=== PATIENT | female | born 1970 | race Caucasian/White ===

== ENCOUNTER 2023-11-27 19:57 | Inpatient (IN) | payer MEDICAID, OTHER ==
[2023-11-27 01:16] VITALS: BP 137/64; TEMP 97.5; O2SAT 99
[~2023-11-27 19:57] MED LIST: LITH45TASA PO
[2023-11-27 21:39] LABS: ETHYL ALCOHOL (ETHANOL) 0.006 % (0.000-0.010)
[2023-11-27 21:40] LABS: ALBUMIN 3.7 G/DL (3.2-5.2); ALKALINE PHOSPHATASE 70 U/L (46-116); ALT/SGPT 23 U/L (7.0-40); AST/SGOT 17 U/L (<34); BILIRUBIN,DIRECT < 0.1 MG/DL (<0.4); BILIRUBIN,TOTAL 0.3 MG/DL (0.3-1.2); BLOOD UREA NITROGEN 13 MG/DL (9-23); CALCIUM LEVEL 11.2 MG/DL (8.5-10.1); CARBON DIOXIDE LEVEL 24 MMOL/L (20-31); CHLORIDE LEVEL 106 MMOL/L (98-107); CREATININE FOR GFR 0.79 MG/DL (0.55-1.30); GLOMERULAR FILTRATION RATE > 60.0 (>51); GLUCOSE, FASTING 237 MG/DL (60-100); LITHIUM LEVEL 0.61 MMOL/L (1.0-1.20); POTASSIUM SERUM 4.4 MMOL/L (3.5-5.1); SALICYLATE LEVEL < 3.0 MG/DL (<30); SODIUM LEVEL 136 MMOL/L (136-145)
[2023-11-27 21:43] LABS: THYROID STIMULATING HORMONE 2.426 uIU/ML (0.55-4.78)
[2023-11-27 21:50] LABS: HEMATOCRIT 35.9 % (36.0-47.0); HEMOGLOBIN 11.4 g/dl (12.0-15.5); MEAN CORPUSCULAR HEMOGLOBIN 31.4 pg (27.0-33.0); MEAN CORPUSCULAR HGB CONC 31.8 g/dl (32.0-36.5); MEAN CORPUSCULAR VOLUME 98.9 fl (80.0-96.0); PLATELET COUNT, AUTOMATED 250 10^3/uL (150-450); RED BLOOD COUNT 3.63 10^6/uL (4.00-5.40); WHITE BLOOD COUNT 8.1 10^3/uL (4.0-10.0)
[2023-11-27 21:52] LABS: HCG, SERUM QUALITATIVE NEGATIVE (NEGATIVE)
[2023-11-27 23:18] LABS: AMPHETAMINES LEVEL URINE NEGATIVE (NEGATIVE); BARBITURATES URINE NEGATIVE (NEGATIVE); BENZODIAZEPINES URINE NEGATIVE (NEGATIVE); CANNABINOIDS URINE NEGATIVE (NEGATIVE); COCAINE METABOLITE URINE NEGATIVE (NEGATIVE); METHADONE URINE NEGATIVE (NEGATIVE); OPIATES URINE NEGATIVE (NEGATIVE); PHENCYCLIDINE URINE NEGATIVE (NEGATIVE)
[2023-11-28] MEDS ORDERED: MOM 30ML SUSPENSION UDC PO PRN (00:15)
[2023-11-28] MEDS ORDERED: IBUPROFEN 400MG TAB PO PRN (00:15)
[2023-11-28] MEDS ORDERED: OLANZapine ORAL DISINTEGRATING TAB 5MG PO PRN (00:15)
[2023-11-28] MEDS ORDERED: traZODone 50 MG TAB PO PRN (00:15)
[2023-11-28] MEDS ORDERED: LORazepam 1 MG TAB PO PRN (00:15)
[2023-11-28] MEDS ORDERED: MAALOX 30 ML SUSP *UDC PO PRN (00:15)
[2023-11-28] MEDS ORDERED: diphenhydrAMINE 25MG CAP PO PRN (00:15)
[2023-11-28] MEDS ORDERED: ACETAMINOPHEN TAB 650MG DOSE (2X325MG) PO PRN (00:15)
[2023-11-28] MEDS ORDERED: LITH45TASA PO (01:15)
[2023-11-28] MEDS ORDERED: ERGO500029 PO (01:15)
[2023-11-28] MEDS ORDERED: HOME MED LIST COMPLETE! XX SCH (01:20)
[2023-11-28] MEDS: LITHIUM CARBONATE 450 MG **CR** TAB PO SCH (01:54)
[2023-11-28 06:04] VITALS: BP 132/74; TEMP 97.8; O2SAT 97
[2023-11-28] MEDS: NICOTINE 21MG/24HR 1 EA TRANSDERMAL TD SCH (09:00)
[2023-11-28 10:41] LABS: HEMOGLOBIN A1c 7.4 % (4.0-6.0)
[2023-11-28] MEDS: metFORMIN (GLUCOPHAGE) 500MG TAB PO SCH (18:17)
[2023-11-28 18:18] VITALS: BP 139/75; TEMP 97.9
[2023-11-28] MEDS ORDERED: LITHIUM CARBONATE 450 MG **CR** TAB PO SCH (21:00)
[2023-11-28] MEDS: FENOFIBRATE 145MG TABLET (TRICOR) PO SCH (21:15)
[2023-11-28] MEDS: risperiDONE 2 MG TAB PO SCH (21:16)
[2023-11-29 06:19] VITALS: BP 134/79; TEMP 98.2; O2SAT 97
[2023-11-29 07:54] LABS: CHOLESTEROL RISK RATIO 5.06 (<5); HDL CHOLESTEROL 36.1 MG/DL (>40); LDL CHOLESTEROL 105.9 MG/DL (<100); NON-HDL-C 146.9 MG/DL
[2023-11-29] MEDS: risperiDONE LONG-ACTING 37.5MG 2ML INJ IM SCH (13:20)
[2023-11-29] MEDS: ATORVASTATIN 20 MG TAB PO SCH (13:21)
[2023-11-29 17:26] VITALS: BP 137/77; TEMP 97.6
[2023-11-30] MEDS ORDERED: ATOR1TAB21 PO (09:12)
[2023-11-30] MEDS ORDERED: RISP37INJ IM (09:12)
[2023-11-30] MEDS ORDERED: RISP-11 PO (09:12)
[2023-11-30] MEDS ORDERED: NICO21PAT TD (09:12)
[2023-11-30] MEDS ORDERED: FENO145T7 PO (09:12)
[2023-11-30] MEDS ORDERED: METF500T13 PO (09:12)
[2023-11-30] MEDS ORDERED: LITH45TASA PO (09:12)
== END 2023-11-30 12:04 | disposition home or self-care (01) | DRG 753 ==
LOC: M ED 19:57 → M ED INP 11-28 00:13 → M PSY 11-28 01:16
PROVIDERS: ADMIT Student in an Organized Health Care Education/Training Program; ATTEND Student in an Organized Health Care Education/Training Program
DX: F31.60 Bipolar disorder, current episode mixed, unspecified (principal); E11.9 Type 2 diabetes mellitus without complications; Z79.899 Other long term (current) drug therapy; F17.200 Nicotine dependence, unspecified, uncomplicated; E78.5 Hyperlipidemia, unspecified

== ENCOUNTER 2023-12-03 11:11 | Inpatient (IN) | payer MEDICAID ==
[~2023-12-03 11:11] MED LIST changes: +ATOR1TAB21 PO; +ERGO500029 PO; +FENO145T7 PO; +METF500T13 PO; +NICO21PAT TD; +RISP-11 PO; +RISP37INJ IM
[2023-12-03 12:49] LABS: HEMATOCRIT 36.5 % (36.0-47.0); HEMOGLOBIN 11.8 g/dl (12.0-15.5); MEAN CORPUSCULAR HEMOGLOBIN 31.8 pg (27.0-33.0); MEAN CORPUSCULAR HGB CONC 32.3 g/dl (32.0-36.5); MEAN CORPUSCULAR VOLUME 98.4 fl (80.0-96.0); PLATELET COUNT, AUTOMATED 260 10^3/uL (150-450); RED BLOOD COUNT 3.71 10^6/uL (4.00-5.40); WHITE BLOOD COUNT 6.8 10^3/uL (4.0-10.0)
[2023-12-03 13:16] LABS: AMPHETAMINES LEVEL URINE NEGATIVE (NEGATIVE); BARBITURATES URINE NEGATIVE (NEGATIVE); BENZODIAZEPINES URINE NEGATIVE (NEGATIVE); COCAINE METABOLITE URINE NEGATIVE (NEGATIVE); METHADONE URINE NEGATIVE (NEGATIVE); OPIATES URINE NEGATIVE (NEGATIVE)
[2023-12-03 13:17] LABS: CANNABINOIDS URINE NEGATIVE (NEGATIVE); PHENCYCLIDINE URINE NEGATIVE (NEGATIVE)
[2023-12-03 13:20] LABS: ALBUMIN 3.9 G/DL (3.2-5.2); ALKALINE PHOSPHATASE 69 U/L (46-116); ALT/SGPT 24 U/L (7.0-40); AST/SGOT 13 U/L (<34); BILIRUBIN,DIRECT 0.2 MG/DL (<0.4); BILIRUBIN,TOTAL 0.6 MG/DL (0.3-1.2); BLOOD UREA NITROGEN 16 MG/DL (9-23); CARBON DIOXIDE LEVEL 26 MMOL/L (20-31); CHLORIDE LEVEL 106 MMOL/L (98-107); GLOMERULAR FILTRATION RATE > 60.0 (>51); GLUCOSE, FASTING 150 MG/DL (60-100); POTASSIUM SERUM 4.6 MMOL/L (3.5-5.1); SALICYLATE LEVEL < 3.0 MG/DL (<30); SODIUM LEVEL 137 MMOL/L (136-145); TOTAL PROTEIN 6.8 G/DL (5.7-8.2)
[2023-12-03 13:22] LABS: THYROID STIMULATING HORMONE 2.346 uIU/ML (0.55-4.78)
[2023-12-03 13:28] LABS: ETHYL ALCOHOL (ETHANOL) 0.009 % (0.000-0.010)
[2023-12-03 15:02] LABS: LITHIUM LEVEL 0.65 MMOL/L (1.0-1.20)
[2023-12-03] MEDS ORDERED: MAALOX 30 ML SUSP *UDC PO PRN (16:35)
[2023-12-03] MEDS ORDERED: ACETAMINOPHEN TAB 650MG DOSE (2X325MG) PO PRN (16:35)
[2023-12-03] MEDS ORDERED: MOM 30ML SUSPENSION UDC PO PRN (16:35)
[2023-12-03] MEDS ORDERED: diphenhydrAMINE 25MG CAP PO PRN (16:35)
[2023-12-03] MEDS ORDERED: IBUPROFEN 400MG TAB PO PRN (16:35)
[2023-12-03] MEDS ORDERED: med rec comment (17:14)
[2023-12-03] MEDS ORDERED: HOME MED LIST COMPLETE! XX SCH (17:15)
[2023-12-03] MEDS: LITHIUM CARBONATE 450 MG **CR** TAB PO SCH (21:39)
[2023-12-03] MEDS: risperiDONE 2 MG TAB PO SCH (21:39)
[2023-12-03] MEDS: traZODone 50 MG TAB PO PRN (21:40)
[2023-12-04 06:05] VITALS: BP 123/58; TEMP 97.5; O2SAT 99
[2023-12-04] MEDS: NICOTINE 21MG/24HR 1 EA TRANSDERMAL TD SCH (08:35)
[2023-12-04] MEDS: DICLOFENAC EPOLAMINE 1.3% PATCH TOP SCH (18:06)
[2023-12-04 18:28] VITALS: BP 129/74; TEMP 98.8; O2SAT 100
[2023-12-05 06:44] VITALS: BP 155/70; TEMP 97.4; O2SAT 99
[2023-12-05 09:05] LABS: IONIZED CALCIUM 5.4 MG/DL (4.5-5.3)
[2023-12-05 09:27] LABS: BLOOD UREA NITROGEN 15 MG/DL (9-23); CALCIUM LEVEL 10.5 MG/DL (8.5-10.1); CARBON DIOXIDE LEVEL 28 MMOL/L (20-31); CHLORIDE LEVEL 106 MMOL/L (98-107); CREATININE FOR GFR 0.82 MG/DL (0.55-1.30); GLOMERULAR FILTRATION RATE > 60.0 (>51); GLUCOSE, FASTING 210 MG/DL (60-100); POTASSIUM SERUM 4.7 MMOL/L (3.5-5.1); SODIUM LEVEL 136 MMOL/L (136-145)
[2023-12-05 18:23] VITALS: BP 135/66; TEMP 97.9
[2023-12-06 06:44] VITALS: BP 144/88; TEMP 97.4; O2SAT 98
[2023-12-06 07:00] LABS: BLOOD UREA NITROGEN 13 MG/DL (9-23); CALCIUM LEVEL 10.8 MG/DL (8.5-10.1); CARBON DIOXIDE LEVEL 28 MMOL/L (20-31); CHLORIDE LEVEL 110 MMOL/L (98-107); CREATININE FOR GFR 0.83 MG/DL (0.55-1.30); GLOMERULAR FILTRATION RATE > 60.0 (>51); GLUCOSE, FASTING 140 MG/DL (60-100); POTASSIUM SERUM 4.8 MMOL/L (3.5-5.1); SODIUM LEVEL 141 MMOL/L (136-145)
[2023-12-06 17:59] VITALS: BP 161/75; TEMP 98.4; O2SAT 100
[2023-12-07 06:22] VITALS: BP 122/91; TEMP 98.1; O2SAT 98
[2023-12-07] MEDS ORDERED: DICL1PAT6 TOP (11:10)
[2023-12-07] MEDS ORDERED: INVE234I IM (11:10)
[2023-12-07] MEDS: PALIPERIDONE PAL 234MG/1.5ML INJ (INVEGA)(FREE PSY INPT ONLY) IM ONE (11:47)
[2023-12-07] MEDS: INFLUENZA QUADRIVALENT PF VACCINE 0.5ML SYRINGE IM.IMMUN ONE (11:49)
== END 2023-12-07 13:34 | disposition home or self-care (01) | DRG 753 ==
LOC: M ED 11:11 → M ED INP 16:35 → M PSY 18:01
PROVIDERS: ADMIT Student in an Organized Health Care Education/Training Program; ATTEND Student in an Organized Health Care Education/Training Program
DX: F31.60 Bipolar disorder, current episode mixed, unspecified (principal); E83.52 Hypercalcemia; Z91.148 Patient's other noncompliance with medication regimen for other reason; Z79.899 Other long term (current) drug therapy; F17.200 Nicotine dependence, unspecified, uncomplicated; M25.511 Pain in right shoulder

== ENCOUNTER 2023-12-16 12:40 | Inpatient (IN) | payer MEDICAID, SELFPAY ==
[~2023-12-16] VITALS: Ht 170.2 cm; Wt 100.5 kg
[~2023-12-16 12:40] MED LIST changes: +DICL1PAT6 TOP; +INVE234I IM; -RISP-11 PO; +RISP4TAB95 PO; +med rec comment
[2023-12-16 13:51] LABS: HEMATOCRIT 35.3 % (36.0-47.0); HEMOGLOBIN 11.6 g/dl (12.0-15.5); MEAN CORPUSCULAR HEMOGLOBIN 32.5 pg (27.0-33.0); MEAN CORPUSCULAR HGB CONC 32.9 g/dl (32.0-36.5); MEAN CORPUSCULAR VOLUME 98.9 fl (80.0-96.0); PLATELET COUNT, AUTOMATED 248 10^3/uL (150-450); RED BLOOD COUNT 3.57 10^6/uL (4.00-5.40); WHITE BLOOD COUNT 5.6 10^3/uL (4.0-10.0)
[2023-12-16 14:05] LABS: ETHYL ALCOHOL (ETHANOL) < 0.003 % (0.000-0.010)
[2023-12-16 14:06] LABS: SALICYLATE LEVEL < 3.0 MG/DL (<30)
[2023-12-16 14:07] LABS: ALBUMIN 3.8 G/DL (3.2-5.2); ALKALINE PHOSPHATASE 60 U/L (46-116); ALT/SGPT 22 U/L (7.0-40); AST/SGOT 11 U/L (<34); BILIRUBIN,DIRECT 0.1 MG/DL (<0.4); BILIRUBIN,TOTAL 0.3 MG/DL (0.3-1.2); BLOOD UREA NITROGEN 12 MG/DL (9-23); CALCIUM LEVEL 10.8 MG/DL (8.5-10.1); CARBON DIOXIDE LEVEL 27 MMOL/L (20-31); CHLORIDE LEVEL 106 MMOL/L (98-107); CREATININE FOR GFR 0.93 MG/DL (0.55-1.30); GLOMERULAR FILTRATION RATE > 60.0 (>51); GLUCOSE, FASTING 241 MG/DL (60-100); POTASSIUM SERUM 4.5 MMOL/L (3.5-5.1); SODIUM LEVEL 137 MMOL/L (136-145); TOTAL PROTEIN 6.7 G/DL (5.7-8.2)
[2023-12-16 14:08] LABS: THYROID STIMULATING HORMONE 1.688 uIU/ML (0.55-4.78)
[2023-12-16 14:13] LABS: HCG, SERUM QUALITATIVE NEGATIVE (NEGATIVE)
[2023-12-16 14:15] LABS: AMPHETAMINES LEVEL URINE NEGATIVE (NEGATIVE); BARBITURATES URINE NEGATIVE (NEGATIVE); BENZODIAZEPINES URINE NEGATIVE (NEGATIVE); CANNABINOIDS URINE NEGATIVE (NEGATIVE); COCAINE METABOLITE URINE NEGATIVE (NEGATIVE); METHADONE URINE NEGATIVE (NEGATIVE); OPIATES URINE NEGATIVE (NEGATIVE); PHENCYCLIDINE URINE NEGATIVE (NEGATIVE)
[2023-12-16 15:05] LABS: LITHIUM LEVEL 0.58 MMOL/L (1.0-1.20)
[2023-12-16] MEDS ORDERED: MED REC IN PROGRESS XX SCH (17:55)
[2023-12-16] MEDS ORDERED: FENO145T7 PO (19:09)
[2023-12-16] MEDS ORDERED: INVE234I IM (19:09)
[2023-12-16] MEDS ORDERED: ATOR1TAB21 PO (19:09)
[2023-12-16] MEDS ORDERED: RISP4TAB95 PO (19:09)
[2023-12-16] MEDS ORDERED: METF500T13 PO (19:09)
[2023-12-16] MEDS ORDERED: HOME MED LIST COMPLETE! XX SCH (19:10)
[2023-12-16] MEDS: OLANZapine ORAL DISINTEGRATING TAB 5MG PO ONE (23:00)
[2023-12-16] MEDS: LORazepam 2 MG TAB PO ONE (23:00)
[2023-12-17] MEDS: metFORMIN (GLUCOPHAGE) 500MG TAB PO SCH (09:31)
[2023-12-17] MEDS: ATORVASTATIN 20 MG TAB PO SCH (09:31)
[2023-12-17] MEDS: FENOFIBRATE 145MG TABLET (TRICOR) PO SCH (09:31)
[2023-12-17] MEDS: NICOTINE 21MG/24HR 1 EA TRANSDERMAL TD ONE (18:36)
[2023-12-17] MEDS: LITHIUM CARBONATE 450 MG **CR** TAB PO SCH (21:29)
[2023-12-18] MEDS: NICOTINE 21MG/24HR 1 EA TRANSDERMAL TD SCH (09:00)
[2023-12-18] MEDS ORDERED: MAALOX 30 ML SUSP *UDC PO PRN (13:30)
[2023-12-18] MEDS ORDERED: MOM 30ML SUSPENSION UDC PO PRN (13:30)
[2023-12-18 15:25] VITALS: BP 130/74; TEMP 97.5; O2SAT 98
[2023-12-18] MEDS: traZODone 50 MG TAB PO PRN (21:37)
[2023-12-19 06:25] VITALS: BP 137/80; TEMP 98.2; O2SAT 98
[2023-12-19 10:39] LABS: IONIZED CALCIUM 5.6 MG/DL (4.5-5.3)
[2023-12-19] MEDS ORDERED: GLUCOSE 4GM CHEW TABLET PO PRN (14:05)
[2023-12-19] MEDS ORDERED: DEXTROSE 50% 50ML SYRINGE IV PRN (14:05)
[2023-12-19] MEDS ORDERED: GLUCAGON INJ 1MG VIAL SC PRN (14:05)
[2023-12-19 15:09] LABS: PTH INTACT 44.7 PG/ML (18.5-88.0)
[2023-12-19] MEDS: CINACALCET 30 MG TAB (SENSIPAR) PO SCH (17:00)
[2023-12-19] MEDS: INSULIN LISPRO (NovoLOG) PER UNIT SC SCH ×2 (17:01→21:00)
[2023-12-19 17:02] VITALS: BP 126/84; TEMP 98.6
[2023-12-19] MEDS: risperiDONE 2 MG TAB PO SCH (21:30)
[2023-12-20 06:20] VITALS: BP 135/68; TEMP 98.2; O2SAT 97
[2023-12-20] MEDS: ACETAMINOPHEN TAB 650MG DOSE (2X325MG) PO PRN (11:09)
[2023-12-20 14:46] VITALS: BP 139/84; TEMP 98; O2SAT 98
[2023-12-20] MEDS: OLANZapine ORAL DISINTEGRATING TAB 5MG PO PRN (15:26)
[2023-12-21 06:26] VITALS: BP 109/80; TEMP 97.4; O2SAT 98
[2023-12-21 16:01] VITALS: BP 131/72; TEMP 98.7; O2SAT 97
[2023-12-22 06:21] VITALS: BP 118/66; TEMP 98.2; O2SAT 96
[2023-12-22 16:08] VITALS: BP 130/61; TEMP 97.6; O2SAT 100
[2023-12-23 06:38] VITALS: BP 154/81; TEMP 98.1; O2SAT 99
[2023-12-23 16:02] VITALS: BP 137/66; TEMP 98.5; O2SAT 99
[2023-12-24 06:42] VITALS: BP 117/67; TEMP 97.3; O2SAT 98
[2023-12-24 18:00] VITALS: BP 140/72; TEMP 97.4; O2SAT 99
[2023-12-25 06:17] VITALS: BP 120/58; TEMP 98.2; O2SAT 97
[2023-12-25] MEDS: CARIPRAZINE 1.5MG CAPSULE (VRAYLAR) PO SCH (12:03)
[2023-12-25] MEDS: TUBERCULIN PPD 5 UNITS/0.1 ML ID ONE (12:06)
[2023-12-25 14:28] VITALS: BP 141/70; TEMP 98.1; O2SAT 98
[2023-12-25] MEDS: NICOTINE POLACRILEX 2 MG GUM PO PRN (15:26)
[2023-12-26] MEDS: IBUPROFEN 400MG TAB PO PRN (03:49)
[2023-12-26 06:41] VITALS: BP 106/59; TEMP 97.8; O2SAT 96
[2023-12-26 17:34] VITALS: BP 129/62; TEMP 98.6; O2SAT 98
[2023-12-27 06:20] VITALS: BP 128/70; TEMP 97.9; O2SAT 98
[2023-12-27] MEDS: PPD DOCUMENTATION ENTRY MISC XX SCH (11:36)
[2023-12-27 18:44] VITALS: BP 116/77; TEMP 97; O2SAT 100
[2023-12-28 06:10] VITALS: BP 126/66; TEMP 98.3
[2023-12-28 14:30] VITALS: BP 166/76; TEMP 97.5; O2SAT 98
[2023-12-29 06:25] VITALS: BP 138/63; TEMP 98.9; O2SAT 96
[2023-12-29 15:52] VITALS: BP 120/62; TEMP 97; O2SAT 98
[2023-12-30 06:30] VITALS: BP 115/71; TEMP 97.3; O2SAT 100
[2023-12-30 17:15] VITALS: BP 137/72; TEMP 97.9; O2SAT 98
[2023-12-31 06:37] VITALS: BP 121/58; TEMP 97.1; O2SAT 98
[2023-12-31] MEDS ORDERED: CARIPRAZINE 3MG CAPSULE (VRAYLAR) PO SCH (09:00)
[2023-12-31 18:21] VITALS: BP 132/63; TEMP 99.2
[2024-01-01 06:34] VITALS: BP 130/74; TEMP 98; O2SAT 100
[2024-01-01] MEDS: CARIPRAZINE 3MG CAPSULE (VRAYLAR) PO SCH (09:56)
[2024-01-01 15:43] VITALS: BP 143/96; TEMP 97.7
[2024-01-02 06:25] VITALS: BP 152/85; TEMP 97.7; O2SAT 97
[2024-01-02] MEDS: PALIPERIDONE PAL 234MG/1.5ML INJ (INVEGA)(FREE PSY INPT ONLY) IM ONE (11:00)
[2024-01-03] MEDS: diphenhydrAMINE 25MG CAP PO PRN (00:05)
[2024-01-03 06:21] VITALS: BP 166/94; TEMP 97.2
[2024-01-03] MEDS: PALIPERIDONE PAL 234MG/1.5ML INJ (INVEGA)(FREE PSY INPT ONLY) IM ONE (12:48)
[2024-01-03 15:32] VITALS: BP 152/89; TEMP 98.6
[2024-01-04 06:04] VITALS: BP 112/71; TEMP 98
[2024-01-04 14:34] VITALS: BP 116/56; TEMP 98.7; O2SAT 98
[2024-01-05 06:40] VITALS: BP 116/82; TEMP 98.5; O2SAT 98
[2024-01-05 18:30] VITALS: BP 138/85; TEMP 98.4; O2SAT 95
[2024-01-06 06:29] VITALS: BP 136/65; TEMP 97.6; O2SAT 99
[2024-01-06 16:22] VITALS: BP 130/58; TEMP 99.6; O2SAT 97
[2024-01-07 06:27] VITALS: BP 151/89; TEMP 97.4; O2SAT 97
[2024-01-07 18:45] VITALS: BP 125/70; TEMP 98.6; O2SAT 95
[2024-01-08 06:18] VITALS: BP 132/75; TEMP 97.7; O2SAT 100
[2024-01-08 17:15] VITALS: BP 128/87; TEMP 98.5
[2024-01-08] MEDS: risperiDONE 2 MG TAB PO SCH (20:01)
[2024-01-08] MEDS: CARIPRAZINE 3MG CAPSULE (VRAYLAR) PO SCH (20:01)
[2024-01-09 06:21] VITALS: BP 122/64; TEMP 98; O2SAT 98
[2024-01-09] MEDS: NICOTINE POLACRILEX 2 MG GUM PO PRN (12:51)
[2024-01-09 17:25] VITALS: BP 132/66; TEMP 97
[2024-01-10 06:21] VITALS: BP 124/90; TEMP 97.7; O2SAT 97
[2024-01-10 17:30] VITALS: BP 140/84; TEMP 97.7; O2SAT 97
[2024-01-11 16:17] VITALS: BP 123/60; TEMP 97.9; O2SAT 98
[2024-01-12 06:11] VITALS: BP 108/66; TEMP 97.8; O2SAT 100
[2024-01-12 15:39] VITALS: BP 117/60; TEMP 98.4; O2SAT 100
[2024-01-13 06:26] VITALS: BP 141/67; TEMP 97.5
[2024-01-13 15:55] VITALS: BP 128/60; TEMP 97.4; O2SAT 97
[2024-01-14 06:31] VITALS: BP 139/64; TEMP 97.7; O2SAT 96
[2024-01-14 16:34] VITALS: BP 117/54; TEMP 99.3; O2SAT 98
[2024-01-15 06:14] VITALS: BP 128/60; TEMP 98.3; O2SAT 95
[2024-01-15 15:56] VITALS: BP 105/57; TEMP 97.1
[2024-01-16 18:13] VITALS: BP 129/65; TEMP 98.7
[2024-01-16] MEDS: LITHIUM CARBONATE 450 MG **CR** TAB PO SCH (21:38)
[2024-01-17 06:19] VITALS: BP 112/63; TEMP 98.4; O2SAT 97
[2024-01-17 16:51] VITALS: BP 130/64; TEMP 97; O2SAT 97
[2024-01-18 06:00] VITALS: BP 102/69; TEMP 99.1; O2SAT 97
[2024-01-18 16:25] VITALS: BP 116/62; TEMP 98.9; O2SAT 98
[2024-01-19 06:29] VITALS: BP 126/71; TEMP 98.9; O2SAT 98
[2024-01-19 15:58] VITALS: BP 142/75; TEMP 98.5; O2SAT 98
[2024-01-20 06:31] VITALS: BP 124/68; TEMP 98.3; O2SAT 97
[2024-01-20 16:16] VITALS: BP 129/60; TEMP 98; O2SAT 100
[2024-01-21 05:52] VITALS: BP 132/82; TEMP 98.7; O2SAT 100
[2024-01-21 18:06] VITALS: BP 132/87; TEMP 98.5
[2024-01-22 06:04] VITALS: BP 109/61; TEMP 97.8; O2SAT 99
[2024-01-22 18:23] VITALS: BP 115/57; TEMP 97.9
[2024-01-23 05:59] VITALS: BP 106/56; TEMP 98.2; O2SAT 95
[2024-01-23 17:10] VITALS: BP 132/66; TEMP 98.5
[2024-01-24 06:15] VITALS: BP 102/58; TEMP 97.7; O2SAT 99
[2024-01-24 16:18] VITALS: BP 133/89; TEMP 98.1; O2SAT 98
[2024-01-25 06:45] VITALS: BP 131/63; TEMP 98.8; O2SAT 96
[2024-01-25] MEDS ORDERED: TRAZ-252 PO (11:38)
[2024-01-25] MEDS ORDERED: RISP2TAB32 PO (11:38)
[2024-01-25] MEDS ORDERED: VRAY6CAP PO (11:38)
[2024-01-25] MEDS ORDERED: INVE234I IM (11:38)
[2024-01-25] MEDS ORDERED: NICO2GUM PO (11:38)
[2024-01-25] MEDS ORDERED: CINA30TA5 PO (11:38)
== END 2024-01-25 14:16 | disposition home or self-care (01) | DRG 750 ==
LOC: M ED 12:40 → M ED INP 12-18 13:30 → M PSY 12-18 14:17
PROVIDERS: ADMIT Student in an Organized Health Care Education/Training Program; ATTEND Student in an Organized Health Care Education/Training Program
DX: F25.0 Schizoaffective disorder, bipolar type (principal); F31.5 Bipolar disorder, current episode depressed, severe, with psychotic features; Z91.148 Patient's other noncompliance with medication regimen for other reason; E11.9 Type 2 diabetes mellitus without complications; E83.52 Hypercalcemia; Z79.899 Other long term (current) drug therapy; F17.210 Nicotine dependence, cigarettes, uncomplicated; E78.5 Hyperlipidemia, unspecified; E66.9 Obesity, unspecified; G47.00 Insomnia, unspecified

== ENCOUNTER → 2024-01-29 | Outpatient (REF) | payer MEDICAID ==
[~2024-01-29] MED LIST changes: +CINA30TA5 PO; +NICO2GUM PO; +RISP2TAB32 PO; +TRAZ-252 PO; +VRAY6CAP PO
[2024-01-30 14:10] LABS: Trichomonas vaginalis (AMP) NOT DETECTED (NEGATIVE)
[2024-01-30 14:34] LABS: GC DNA AMPLIFICATION NEGATIVE (NEGATIVE)
== END ==
LOC: M LAB REF 11:39
PROVIDERS: ATTEND Physician Assistant
DX: Z11.9 Encounter for screening for infectious and parasitic diseases, unspecified (principal)

== ENCOUNTER → 2024-03-18 | Outpatient (REF) | payer MEDICAID ==
[2024-03-18 14:13] LABS: ALKALINE PHOSPHATASE 70 U/L (46-116); ALT/SGPT 29 U/L (7.0-40); AST/SGOT 13 U/L (<34); BILIRUBIN,TOTAL 0.6 MG/DL (0.3-1.2); BLOOD UREA NITROGEN 12 MG/DL (9-23); CARBON DIOXIDE LEVEL 26 MMOL/L (20-31); CHLORIDE LEVEL 103 MMOL/L (98-107); CHOLESTEROL LEVEL 131 MG/DL (<200); CHOLESTEROL RISK RATIO 4.39 (<5); CREATININE FOR GFR 0.85 MG/DL (0.55-1.30); GLOMERULAR FILTRATION RATE > 60.0 (>51); GLUCOSE, FASTING 342 MG/DL (60-100); HDL CHOLESTEROL 29.8 MG/DL (>40); NON-HDL-C 101.2 MG/DL; POTASSIUM SERUM 4.5 MMOL/L (3.5-5.1); SODIUM LEVEL 135 MMOL/L (136-145); TOTAL PROTEIN 6.9 G/DL (5.7-8.2); TRIGLYCERIDES LEVEL 446 MG/DL (<150)
[2024-03-18 14:15] LABS: THYROID STIMULATING HORMONE 2.316 uIU/ML (0.55-4.78); TOTAL 25(OH) VITAMIN D 28.8 NG/ML (20.0-100.0)
[2024-03-18 14:28] LABS: HEMOGLOBIN A1c 10.2 % (4.0-6.0)
[2024-03-18 14:46] LABS: HIV 1&2 SCREEN NEGATIVE (NEGATIVE)
[2024-03-18 14:53] LABS: HEPATITIS C VIRUS ABY INDEX < 0.02 INDEX (<0.8)
== END ==
LOC: M LAB REF 12:43
PROVIDERS: ATTEND Physician Assistant
DX: E11.9 Type 2 diabetes mellitus without complications (principal); E55.9 Vitamin D deficiency, unspecified; E66.9 Obesity, unspecified; E78.5 Hyperlipidemia, unspecified; Z11.9 Encounter for screening for infectious and parasitic diseases, unspecified

== ENCOUNTER → 2024-04-29 | Outpatient (REF) | payer MEDICAID ==
[2024-04-30 13:09] LABS: CREATININE, URINE 48.1 MG/DL; MAU/CREAT RATIO 16.6 MCG/MG (0.0-30.0)
== END ==
LOC: M LAB REF 11:57
PROVIDERS: ATTEND Physician Assistant
DX: E11.9 Type 2 diabetes mellitus without complications (principal)

== ENCOUNTER → 2024-06-04 | Outpatient (CLI) | payer OTHER | LOC: M WHC 14:25 | PROVIDERS: ATTEND Physician Assistant | DX: Z12.31 Encounter for screening mammogram for malignant neoplasm of breast (principal) ==

== ENCOUNTER → 2024-07-11 | Outpatient (REF) | payer OTHER ==
[2024-07-16 11:58] LABS: HPV APTIMA Not Detected (Not Detected)
== END ==
LOC: M LAB REF 13:00
PROVIDERS: ATTEND Physician Assistant
DX: Z12.4 Encounter for screening for malignant neoplasm of cervix (principal)

== ENCOUNTER → 2025-05-27 | Outpatient (CLI) | payer OTHER ==
[~2025-05-27] MED LIST changes: +LITH450T17 PO; -LITH45TASA PO
[2025-05-27 12:47] LABS: BASO # 0.0 10^3/uL (0.0-0.2); BASO % 0.6 % (0.0-1.0); EOS # 0.3 10^3/uL (0.0-0.5); EOS % 3.9 % (0.0-3.0); LYMPH # 2.5 10^3/uL (1.5-5.0); LYMPH % 38.9 % (24.0-44.0); MONO # 0.4 10^3/uL (0.0-0.8); MONO % 6.4 % (2.0-8.0); NEUTROPHILS # 3.2 10^3/uL (1.5-8.5); NEUTROPHILS % 50.0 % (36.0-66.0); PLATELET COUNT, AUTOMATED 285 10^3/uL (150-450)
[2025-05-27 13:20] LABS: ALT/SGPT 31 U/L (7.0-40); AST/SGOT 23 U/L (<34); CALCIUM LEVEL 11.4 MG/DL (8.5-10.1); CARBON DIOXIDE LEVEL 25 MMOL/L (20-31); CHLORIDE LEVEL 106 MMOL/L (98-107); CHOLESTEROL LEVEL 173 MG/DL (<200); CHOLESTEROL RISK RATIO 5.25 (<5); CREATININE FOR GFR 0.88 MG/DL (0.55-1.30); FREE T4 1.11 NG/DL (0.89-1.76); GLOMERULAR FILTRATION RATE 78.5 (>51); LITHIUM LEVEL 0.78 MMOL/L (1.0-1.20); NON-HDL-C 140.1 MG/DL; POTASSIUM SERUM 4.4 MMOL/L (3.5-5.1); SODIUM LEVEL 140 MMOL/L (136-145); TRIGLYCERIDES LEVEL 440 MG/DL (<150)
== END ==
LOC: M WUC 09:48
PROVIDERS: ATTEND Nurse Practitioner Family
DX: F31.70 Bipolar disorder, currently in remission, most recent episode unspecified (principal)